=== PATIENT | male | born 1970 | race Two or more races ===

== ENCOUNTER 2018-11-23 04:26 | Inpatient (IN) | payer SELFPAY ==
[2018-11-23] VITALS (7 sets, daily range): BP systolic 129–147; BP diastolic 77–99
[~2018-11-23] VITALS: Ht 170.2 cm; Wt 40.1 kg
[2018-11-23] MEDS ORDERED: levETIRAcetam 1,000mg/NS100ml 100 ML IVPB ONE ×2 (04:30)
--- NOTE | 2018-11-23 04:30 | NUR ---
ED Nurse Note: Pt SHABANA from street, pt witnessed having multiple 3+ min tonic-clonic seizures, incontinent of urine, loc, VSS. Addendum: 11/23/18 at 0514 by KDEARING Seizure precautions in place
[2018-11-23] MEDS ORDERED: Isovue-370 150ml vial INJ PRN ×2 (05:15)
[2018-11-23 05:22] LABS: HEMATOCRIT 31.1 % (42.0-52.0); HEMOGLOBIN 9.5 G/DL (14.2-18.0); MEAN CORPUSCULAR VOLUME 87 FL (80-99); PLATELET COUNT 62 K/UL (150-450); RED BLOOD COUNT 3.57 M/UL (4.70-6.10); RED CELL DISTRIBUTION WIDTH 23.9 % (11.6-14.8); WHITE BLOOD COUNT 2.5 K/UL (4.8-10.8)
[2018-11-23 05:27] LABS: APPEARANCE,URINE CLEAR; BILIRUBIN, URINE NEGATIVE (NEGATIVE); COLOR,URINE PALE YELLOW; GLUCOSE, URINE (UA) NEGATIVE (NEGATIVE); KETONES,URINE NEGATIVE (NEGATIVE); LEUKOCYTE ESTERASE ,URINE NEGATIVE (NEGATIVE); NITRITE,URINE NEGATIVE (NEGATIVE); PH,URINE 6 (4.5-8.0); UROBILINOGEN,URINE NORMAL MG/DL (0.0-1.0)
--- NOTE | 2018-11-23 05:27 | Emergency Room Report ---
History of Present Illness General Chief Complaint: Seizure Source: EMS (Eliel Dennison MD) Present Illness HPI Approximately 52-year-old male presents with seizure prior to arrival, patient was per EMS knocking at an alcoholics anonymous door ring seizures. Had a witnessed seizure tonic-clonic, they were called to the scene, given 5 Versed terminated the seizure, patient has moved all 4 extremities without localizing signs, unknown aggravating or alleviating factors, patient is unable to answer to questions because he is currently asleep patient urinated himself. (Eliel Dennison MD) Allergies: Coded Allergies: UNABLE TO ASSESS (Unverified , 11/23/18) Patient History Limited by: medical condition - Postictal Past Medical History: see triage record Reviewed Nursing Documentation: PMH: Agreed; PSxH: Agreed (Eliel Dennison MD) Nursing Documentation-PMH Past Medical History Deferred: Patient Unconscious (Eliel Dennison MD) Review of Systems All Other Systems: limited - Patient is postictal (Eliel Dennison MD) Physical Exam Vital Signs Date Time Temp Pulse Resp B/P (MAP) Pulse Ox O2 Delivery O2 Flow Rate FiO2 11/23/18 04:24 99.3 97 20 141/96 (111) 100 Room Air Sp02 EP Interpretation: reviewed, normal General Appearance: non-toxic, lethargic Head: normocephalic, atraumatic Eyes: bilateral eye PERRL, bilateral eye EOMI ENT: uvula midline, moist mucus membranes Neck: supple, thyroid normal, supple/symm/no masses Respiratory: lungs clear, no respiratory distress, no retraction, no accessory muscle use Cardiovascular #1: normal peripheral pulses, regular rate, rhythm, no edema, no gallop, no murmur Gastrointestinal: non tender, soft, no guarding, no rebound Musculoskeletal: normal inspection Neurologic: responsive, other - Moving all 4 extremities to pain Psychiatric: mood/affect normal Skin: no rash, warm/dry (Eliel Dennison MD) Medical Decision Making Diagnostic Impression: Primary Impression: Impending delirium tremens Additional Impressions: Epileptic seizure, generalized Acute alcohol intoxication Qualified Codes: F10.929 - Alcohol use, unspecified with intoxication, unspecified Status post facial trauma with neck and chest ecchymoses Thrombocytopenia Fever Qualified Codes: R50.9 - Fever, unspecified Leukopenia Qualified Codes: D72.819 - Decreased white blood cell count, unspecified Anemia Qualified Codes: D64.9 - Anemia, unspecified ER Course 52-year-old male approximately, presents with seizure patient apparently has a history of seizures, per EMS patient was stating he is having recurrent seizures Versed was given in the field, patient is postictal and sleeping Laboratory Tests Test 11/23/18 04:50 White Blood Count 2.5 K/UL (4.8-10.8) L Red Blood Count 3.57 M/UL (4.70-6.10) L Hemoglobin 9.5 G/DL (14.2-18.0) L Hematocrit 31.1 % (42.0-52.0) L Mean Corpuscular Volume 87 FL (80-99) Mean Corpuscular Hemoglobin 26.8 PG (27.0-31.0) L Mean Corpuscular Hemoglobin Concent 30.7 G/DL (32.0-36.0) L Red Cell Distribution Width 23.9 % (11.6-14.8) H Platelet Count 62 K/UL (150-450) L Mean Platelet Volume 7.1 FL (6.5-10.1) Neutrophils (%) (Auto) % (45.0-75.0) Lymphocytes (%) (Auto) % (20.0-45.0) Monocytes (%) (Auto) % (1.0-10.0) Eosinophils (%) (Auto) % (0.0-3.0) Basophils (%) (Auto) % (0.0-2.0) Urine Color Pale yellow Urine Appearance Clear Urine pH 6 (4.5-8.0) Urine Specific [place] 1.015 (1.005-1.035) Urine Protein Negative (NEGATIVE) Urine Glucose (UA) Negative (NEGATIVE) Urine Ketones Negative (NEGATIVE) Urine Blood Negative (NEGATIVE) Urine Nitrite Negative (NEGATIVE) Urine Bilirubin Negative (NEGATIVE) Urine Urobilinogen Normal MG/DL (0.0-1.0) Urine Leukocyte Esterase Negative (NEGATIVE) Sodium Level 138 MMOL/L (136-145) Potassium Level 3.5 MMOL/L (3.5-5.1) Chloride Level 101 MMOL/L (98-107) Carbon Dioxide Level 20 MMOL/L (21-32) L Anion Gap 17 mmol/L (5-15) H Blood Urea Nitrogen 3 mg/dL (7-18) L Creatinine 0.9 MG/DL (0.55-1.30) Estimate Glomerular Filtration Rate > 60 mL/min (>60) Glucose Level 115 MG/DL (74-106) H Calcium Level 8.2 MG/DL (8.5-10.1) L Total Bilirubin 0.7 MG/DL (0.2-1.0) Aspartate Amino Transferase (AST) 70 U/L (15-37) H Alanine Aminotransferase (ALT) 37 U/L (12-78) Alkaline Phosphatase 97 U/L (46-116) Total Protein 7.8 G/DL (6.4-8.2) Albumin 3.9 G/DL (3.4-5.0) Globulin 3.9 g/dL Albumin/Globulin Ratio 1.0 (1.0-2.7) Salicylates Level 0.5 ug/mL (2.8-20) L Urine Opiates Screen Negative (NEGATIVE) Acetaminophen Level < 2 MCG/ML (10-30) L Urine Barbiturates Screen Negative (NEGATIVE) Phenytoin (Dilantin) Level < 5.0 ug/mL (10-20) L Valproic Acid Level 3 MCG/ML (50-100) L Carbamazepine (Tegretol) Level < 4.0 ug/mL (4.0-12.0) L Phencyclidine (PCP) Screen Negative (NEGATIVE) Urine Amphetamines Screen Negative (NEGATIVE) Phenobarbital Level < 15.0 ug/mL (15-40) L Urine Benzodiazepines Screen Positive (NEGATIVE) H Urine Cocaine Screen Negative (NEGATIVE) Urine Marijuana (THC) Screen Negative (NEGATIVE) Serum Alcohol 192 mg/dL (Eliel Dennison MD) ER Course Please see above note. Patient more awake but still somnolent. Will open eyes and moving all fours and able to urinate on his own. CT of the head with atrophy. PA of the neck with facial edema no evidence of fracture and osteoarthritis of neck. No vascular injuries. Continued observation. Able to state name (barely conversant). Tremulous. Low grade fever. Needs admission. Ativan given. Thiamine given. Social service consult. Admit SDU impending DTs. See above diagnosis. (Edwar Lopez MD) EKG Diagnostic Results EKG Time: 04:58 EP Interpretation: NSR, rate 84, QTc 441, no acute ST elevations, normal axis Rate: normal Rhythm: NSR ST Segments: no acute changes (Eliel Dennison MD) Rhythm Strip Diag. Results Rhythm Strip Time: 05:30 EP Interpretation: yes Rate: 88 Rhythm: NSR, no PVC's, no ectopy (Eliel Dennison MD) EP Interpretation: yes Rhythm: NSR, no PVC's, no ectopy (Edwar Lopez MD) Chest X-Ray Diagnostic Results Chest X-Ray Diagnostic Results : Chest X-Ray Ordered: Yes # of Views/Limited/Complete: 1 View Indication: Other EP Interpretation: Yes Interpretation: no consolidation, no effusion, no pneumothorax Impression: No acute disease Electronically Signed by: Electronically signed by Edwar Lopez MD (Edwar Lopez MD) CT/MRI/US Diagnostic Results CT/MRI/US Diagnostic Results #1: Imaging Test Ordered: head Impression atrophy CT/MRI/US Diagnostic Results #2: Imaging Test Ordered: CTA neck Impression IMPRESSION: Study extends from the lung bases to the level of C1 and does not include the high cervical internal carotid arteries or the V3 segments of the vertebral arteries. Mild atherosclerotic plaquing about the carotid bifurcations without flow- limiting stenosis, acute dissection, or aneurysm. Less than 10% stenosis of the proximal left cervical ICA is present. No flow-limiting stenosis or dissection in the visualized vertebral arteries. The right vertebral artery is nondominant. Relatively diffuse soft tissue edema and possible focal right lower facial edema or contusion. Correlate clinically. INCIDENTAL FINDINGS: Clustered reticulonodular groundglass opacities in the left upper lobe and lingula. Correlate for infectious/inflammatory bronchiolitis. Linear right suprahilar opacities likely reflect scarring. Cardiomegaly and atherosclerosis without thoracic aortic aneurysm. Hepatic steatosis. Mild cervical spondylosis (Edwar Lopez MD) Last Vital Signs Date Time Temp Pulse Resp B/P (MAP) Pulse Ox O2 Delivery O2 Flow Rate FiO2 11/23/18 04:30 97 20 Room Air 11/23/18 04:30 99.3 141/96 100 (Eliel Dennison MD) Last Vital Signs Date Time Temp Pulse Resp B/P (MAP) Pulse Ox O2 Delivery O2 Flow Rate FiO2 11/23/18 16:05 Room Air 11/23/18 16:00 99.8 71 142/80 (100) 11/23/18 14:50 18 98 Status: improved (Edwar Lopez MD) Disposition: ADMITTED INPATIENT Condition: Serious Referrals: NOT CHOSEN IPA/,REFERRING (PCP) Patient Instructions: Seizure, Adult Eliel Dennison MD Nov 23, 2018 05:27 Edwar Lopez MD Nov 23, 2018 08:22
[2018-11-23 05:32] LABS: CHLORIDE 101 MMOL/L (98-107)
[2018-11-23 05:43] LABS: ANION GAP 17 mmol/L (5-15); CARBON DIOXIDE 20 MMOL/L (21-32); POTASSIUM 3.5 MMOL/L (3.5-5.1); SODIUM 138 MMOL/L (136-145)
[2018-11-23 05:47] LABS: PROTEIN,URINE NEGATIVE (NEGATIVE)
[2018-11-23 05:51] LABS: BLOOD UREA NITROGEN 3 mg/dL (7-18); CALCIUM 8.2 MG/DL (8.5-10.1); CREATININE 0.9 MG/DL (0.55-1.30)
[2018-11-23 06:03] LABS: ASPARTATE AMINO TRANSFERASE 70 U/L (15-37); BILIRUBIN,TOTAL 0.7 MG/DL (0.2-1.0)
[2018-11-23 06:04] LABS: ALANINE AMINOTRANSFERASE 37 U/L (12-78); ALBUMIN 3.9 G/DL (3.4-5.0); ALKALINE PHOSPHATASE 97 U/L (46-116)
--- NOTE | 2018-11-23 06:33 | Diagnostic Imaging Report ---
Indications: Seizure Technique: Spiral acquisitions obtained through the brain. Angled axial and coronal 5 x 5 mm slices were reconstructed. Total dose length product 1393 mGycm. CTDI vol(s) 70 mGy. Dose reduction achieved using automated exposure control Comparison: None. Findings: There is some encephalomalacia in the high left right posterior parietal lobe. No acute intracranial hemorrhage or edema. No mass effect nor midline shift. There is mild prominence of the ventricles and extra axial CSF spaces. The calvarium is intact. There is minimal ethmoid sinus mucosal thickening. The mastoids are clear. The calvarium is intact Impression: Negative for acute intracranial bleed or mass effect Minimal age-related volume loss The above findings are in agreement with the [facility] preliminary report Right posterior parietal encephalomalacia, likely old infarct, not described on the preliminary report The CT scanner at [facility] is accredited by the [employer] and the scans are performed using protocols designed to limit radiation exposure to as low as reasonably achievable to attain images of sufficient resolution adequate for diagnostic evaluation.
[2018-11-23 06:52] LABS: CREATINE KINASE 298 U/L (26-308)
--- NOTE | 2018-11-23 07:01 | NUR ---
HAND-OFF: Report given to christiane Suarez RN.
--- NOTE | 2018-11-23 07:10 | NUR ---
ED Nurse Note: Received patient sleeping without acute distress in bed. no IV access noted. vss as documented. alon try to wake pt up and insert new iv if there is further iv order. pt resting at this moment.
--- NOTE | 2018-11-23 07:45 | NUR ---
ED Nurse Note: pt woke up and urinated 300 ccin urinal with assist in bed Addendum: 11/23/18 at 0745 by [email or web address] ED Nurse Note: pt woke up and urinated 300cc in urinal with assist in bed. heart rate went up to 126/min and pt had tremor in general body. pt finished urination and went back to sleep. heart rate went down to 85/min again. was not able to carry conversation. pt was unable to verbalize his name.
--- NOTE | 2018-11-23 08:07 | Diagnostic Imaging Report ---
Indication: Trauma, bruising ligature love around patient's neck, altered Technique: IV administration nonionic contrast. Arterial phase spiral acquisitions obtained through the lower neck and upper chest. Multiplanar reconstructions were generated. Total dose length product 2867 mGycm. CTDIvol(s) 16, 132, 80 mGy. Radiation dose was minimized using automated exposure control Comparison: none Findings: Exam is limited, as the cephalad extent of the exam stops well below the skull base. Unremarkable aortic arch. Normal classic branching anatomy of the great neck vessels. The right brachiocephalic, common carotid, proximal internal carotid arteries are all patent and nonstenotic. The right subclavian artery and vertebral artery are patent, without significant stenosis. Patent nonstenotic left common carotid artery and proximal internal carotid artery. Patent nonstenotic left proximal subclavian artery and proximal vertebral artery. No evidence of contrast extravasation, vascular occlusion, intimal flap, pseudoaneurysm, or other evidence of significant vascular trauma. Unremarkable hypopharynx, larynx, trachea, and esophagus. No cervical mass or adenopathy. No supraclavicular mass or adenopathy. The included mediastinum is unremarkable. Some atelectasis or scarring is seen at the right lung apex. Reticulonodular opacities are seen in the lingula and right lower lobe, with some patchy airspace consolidation in the inferior posterior lingula. The visualized portions of the liver are hypoattenuating. There is mild generalized soft tissue edema and possibly some lower facial edema on the right. The heart is borderline enlarged Impression: Limited exam, as described No evidence of significant vascular injury or extracranial cerebrovascular insufficiency Mild generalized soft tissue edema, nonspecific, could be related to prior should trauma more likely represents generalized edematous process Fatty liver incidentally noted Bilateral pulmonary parenchymal disease, possibly acute on the left. Correlate with clinical findings Borderline cardiomegaly. This agrees with the preliminary interpretation provided overnight by [facility] teleradiology service. The CT scanner at [facility] is accredited by the [employer] and the scans are performed using protocols designed to limit radiation exposure to as low as reasonably achievable to attain images of sufficient resolution adequate for diagnostic evaluation.
--- NOTE | 2018-11-23 08:30 | NUR ---
ED Nurse Note: iv inserted on Rt thumb 24G. iv fluid 300cc per hour initiated.
--- NOTE | 2018-11-23 08:59 | NUR ---
ED Nurse Note: ERMD at bedside trying to wake pt up and talk to pt. pt unable to answer the questions. pt opens eyes spontaneously but fell back to sleep right away. mumbled but not talked.
--- NOTE | 2018-11-23 10:50 | NUR ---
ED Nurse Note: pt awake and moves and HR went up to 150/min. tremor in general body noted. reported to ERMD
--- NOTE | 2018-11-23 11:13 | Diagnostic Imaging Report ---
Indication: Dyspnea Technique: One view of the chest Comparison: none Findings: Inspiration is suboptimal Patient is rotated to the right. The heart is upper limits of normal in size. The aorta is tortuous ectatic and calcified. Impression: Hypoventilatory exam. No definite acute process
[2018-11-23] MEDS ORDERED: LORazepam Inj 2mg/ml 1ml IV ONE (11:45)
[2018-11-23] MEDS ORDERED: UNOBMED (13:17)
[2018-11-23] MEDS ORDERED: Thiamine HCl 100mg/ml 2 ml Inj IM STA (13:34)
--- NOTE | 2018-11-23 14:23 | NUR ---
ED Nurse Note: report given to SHANNAN Sprague. per Darcie, room will be ready in 20 minutes. will leave at 1440.
--- NOTE | 2018-11-23 14:25 | NUR ---
NURSE NOTES: Telephone report received from Javon Suarez RN.
--- NOTE | 2018-11-23 14:50 | NUR ---
ED Nurse Note: pt left unit with 1 manager technical support and 1 RN without changes of condition.
--- NOTE | 2018-11-23 14:54 | NUR ---
NURSE NOTES: Received patient from ER via gurney to room 238-2. Patient asleep, arousable to verbal stimuli, but only mumbles. Patient on room air, saturating 94%. No acute respiratory distress noted. BP 129/83, HR 75, RR 20, Temp 99.1 axillary. Placed on vehicle monitor technician, shows sinus rhythm at this time. IV on right hand 20g intact and patent. Patient noted to have bruise on the neck. No open wounds noted, bilateral feet noted to be very dry. External catheter applied. Safety and seizure precautions in place, bed locked,alarmed, and in lowest position, padded side rails up x2, and call light left within reach. Patient placed in room close to station. Dr Avila contacted for admission orders, awaiting for call back. Will continue to monitor patient.
--- NOTE | 2018-11-23 15:00 | NUR ---
NURSE NOTES: No ID noted, unable to verify allergies and past medical history from patient.
[2018-11-23] MEDS ORDERED: Zolpidem 5mg tab ORAL PRN (15:45)
[2018-11-23] MEDS ORDERED: Miralax 17gm pkt ORAL PRN (15:45)
[2018-11-23] MEDS ORDERED: Morphine Sulfate 2mg/ml Inj(IV/IM USE ONLY) IVP PRN ×2 (15:45→23:45)
[2018-11-23] MEDS ORDERED: chlordiazePOXIDE 25mg Cap ORAL PRN (15:45)
[2018-11-23] MEDS ORDERED: LORazepam Inj 2mg/ml 1ml IV PRN ×2 (15:45→23:45)
--- NOTE | 2018-11-23 17:23 | History & Physical ---
History and Physical History & Physicial Dictated for Int Med-Dr Avila no. [id number]. Zbigniew Barakat MD Nov 23, 2018 17:23
[2018-11-23] MEDS ORDERED: Thiamine 100mg in D5W 55ml IVPB SCH (18:00)
[2018-11-23] MEDS ORDERED: Folic Acid 1 MG, Magnesium Sulfate 2,000 MG, Multivitamin - 12 Injection 10 ML in NS w/... IV SCH (18:00)
--- NOTE | 2018-11-23 18:00 | NUR ---
NURSE NOTES: Right hand 22g IV inserted, IV fluids running at prescribed rate. Noted rashes on the right hand.
--- NOTE | 2018-11-23 19:23 | NUR ---
HAND-OFF: Report given to SHANNAN Orellana. Patient in stable condition.
[2018-11-23] MEDS ORDERED: Heparin 5000 units/ml inj SUBQ SCH (21:00)
--- NOTE | 2018-11-23 22:30 | NUR ---
HAND-OFF: Report given to yassine CAMPBELL TELE. pt remains stable, even more responsive than start of shift. pt transfered with all belongings.
--- NOTE | 2018-11-23 23:00 | History and Physical Report ---
DATE OF ADMISSION: 11/23/2018 CHIEF COMPLAINT: The patient is a 52-year-old male, who presents with a chief complaint of witnessed seizure. HISTORY OF PRESENT ILLNESS: The patient is unable to contribute to the history and physical. The patient is currently somnolent however arousable. The patient presented to [place] emergency room after witnessed seizure. This is apparent withdrawal seizure from alcohol. The patient was found to have serum alcohol level of 192. The patient was admitted for seizure disorder to rule out alcohol withdrawal seizure. REVIEW OF SYSTEMS: Unable to assess secondary to the patient's mental status. PAST MEDICAL HISTORY: Unknown. PAST SURGICAL HISTORY: Unknown. CURRENT MEDICATIONS: Unknown. ALLERGIES: Unknown. SOCIAL HISTORY: Unknown. PHYSICAL EXAMINATION: VITAL SIGNS: Temperature 99.3, respirations 20, pulse 97, and blood pressure 141/96. GENERAL: The patient is a well-developed and well-nourished male, who is somnolent, but arousable. HEENT: Eyes, pupils are equal and responsive to light and accommodation. Extraocular movements are intact. NECK: Supple without lymphadenopathy. CHEST: Lungs are clear to auscultation bilaterally without wheezes or rales. CARDIOVASCULAR: Regular rhythm and rate. S1 and S2 are normal without murmurs, rubs, or gallops. ABDOMEN: Soft, nontender, and nondistended. Positive bowel sounds. No evidence of hepatosplenomegaly. Currently, no rebound or guarding noted. EXTREMITIES: Negative for clubbing, cyanosis, or edema. RECTAL/GENITAL: Not performed. NEUROLOGICAL: Unable to assess. LABORATORY STUDIES: WBC 2.5, hemoglobin 9.5, hematocrit 31.1, and platelets 62,000. Sodium 138, potassium 3.5, chloride 101, CO2 20, BUN 3, creatinine 0.9, and glucose 115. AST elevated at 70. Total creatine kinase normal at 298. Urinalysis was within normal limits. Urine toxicology was positive for benzodiazepines. Serum alcohol level was elevated at 192. ASSESSMENT: This is a 52-year-old male. 1. Seizure disorder. 2. Acute alcohol intoxication. 3. Elevated liver function tests. 4. Thrombocytopenia. TREATMENT: 1. Seizure disorder. This is probably secondary to alcohol withdrawal. The patient has been started empirically on Librium. The patient received Versed in the field. The patient has had no further seizure activity during the hospitalization. When the patient awakens, a Neurology consultation will be been obtained with Dr. Alex Meier. 2. Alcohol intoxication. The patient has been placed empirically on Librium for acute withdrawal symptoms. The patient has received intravenous Ativan in the emergency room. 3. Elevated liver function tests. This is probably secondary to chronic alcoholism. 4. Thrombocytopenia is probably secondary to alcoholic liver disease. Zbigniew Barakat M.D. DR: MARS JOB#: [id number] CC:
[2018-11-24] VITALS: BP 134/84
[2018-11-24] MEDS ORDERED: Zolpidem 5mg tab ORAL PRN
[2018-11-24] MEDS ORDERED: chlordiazePOXIDE 25mg Cap ORAL PRN (00:15)
[2018-11-24 00:23] VITALS: BP 127/82
[2018-11-24 04:00] VITALS: BP 151/89
[2018-11-24] MEDS ORDERED: Isovue-370 150ml vial INJ PRN ×2 (05:15)
[2018-11-24 06:32] LABS: HEMATOCRIT 33.8 % (42.0-52.0); HEMOGLOBIN 10.7 G/DL (14.2-18.0); MEAN CORPUSCULAR VOLUME 86 FL (80-99); PLATELET COUNT 73 K/UL (150-450); RED BLOOD COUNT 3.91 M/UL (4.70-6.10); WHITE BLOOD COUNT 4.4 K/UL (4.8-10.8)
[2018-11-24 06:53] LABS: ALANINE AMINOTRANSFERASE 29 U/L (12-78); ALBUMIN 3.8 G/DL (3.4-5.0); ALBUMIN/GLOBULIN RATIO 0.9 (1.0-2.7); ALKALINE PHOSPHATASE 72 U/L (46-116); ANION GAP 10 mmol/L (5-15); ASPARTATE AMINO TRANSFERASE 47 U/L (15-37); BILIRUBIN,TOTAL 1.5 MG/DL (0.2-1.0); BLOOD UREA NITROGEN 5 mg/dL (7-18); CALCIUM 8.9 MG/DL (8.5-10.1); CARBON DIOXIDE 26 MMOL/L (21-32); CHLORIDE 104 MMOL/L (98-107); CREATININE 0.7 MG/DL (0.55-1.30); POTASSIUM 3.5 MMOL/L (3.5-5.1); SODIUM 140 MMOL/L (136-145)
[2018-11-24 06:58] LABS: BILIRUBIN,DIRECT 0.3 MG/DL (0.0-0.3)
--- NOTE | 2018-11-24 07:10 | NUR ---
NURSE NOTES: Received patient from SHANNAN Arriaza. Patient is awake AAO x 4. Patient is eating breakfast. Patient is able to state his name. Patient on room air, saturating 94%. No acute respiratory distress noted. Patient is on cafeteria monitor. IV on right hand 20g intact and patent. Patient noted to have bruise on the neck. Safety and seizure precautions in place, bed locked,alarmed, and in lowest position, padded side rails up x2, and call light left within reach. Patient placed in room close to station. Will continue to monitor patient. Addendum: 11/24/18 at 0802 by Kyle Izquierdo RN Patient is AAO x 3.
[2018-11-24 08:00] VITALS: BP 133/86
--- NOTE | 2018-11-24 08:01 | NUR ---
CASE MANAGEMENT:REVIEW 52 YR OLD MALE BIBA FROM STREET CC: MULTIPLE SEIZURES SI: DELIRIUM TREMORS. SEIZURE. ACUTE ALCOHOL INTOXICATION 99.3 97 20 141/96 100% ON RA WBC-2.5 PLT-62 SERUM ALCOHOL+192 IS: IV KEPPRA X2 1L NS BOLUS X2 IV ATIVAN BLOOD CX CTA CHEST AND NECK CXR : TO TELEMETRY INTERQUAL CRITERIA MET
--- NOTE | 2018-11-24 10:51 | NUR ---
Social Service Note JOAQUIN and CM Coordinator met with patient to assess for homelessness. Patient is alert, oriented and verbally responsive in Nauruan. Patient states his names is Gladis Willams date of 04/29/1971. Patient states he is homelessness due to ETOH abuse. He is unable to stay with his Jennifer Willams [phone] because of his drinking. Patient [facility] receiving alcohol [facility] [phone]. JOAQUIN spoke with Alexander at this program. Alexander states patient may return to program at anytime, he will need to provide discharge instructions from hospital to return. Also the program will need to be called prior to transfer back. Patient was informed of conversation with Rizwan. Patient would like to return to program however states on the day of discharge if he is unable to return he would return to the streets. 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 Patient is non-documented and has no insurance. Resources placed in the chart and homeless checklist to be completed upon discharge. Will monitor and continue to be available as needed. A three day supply of medication to be provided upon discharge if required.
[2018-11-24 12:00] VITALS: BP 139/90
--- NOTE | 2018-11-24 12:32 | Consultation ---
History of Present Illness General Date patient seen: Nov 24, 2018 Chief Complaint: Seizure Present Illness HPI 52-year-old male presented to ER after having seizures prior to arrival. Patient had per EMS witnessed tonic-clonic seizure and got 5 mg Versed. patient was unable to answer to questions last night in ER. His ETOH blood level was 190. He is admitted to telemetry for further management. Allergies: Coded Allergies: UNABLE TO ASSESS (Unverified , 11/23/18) Medication History Miscellaneous Medications Unable to Obtain Medications (Unable To Obtain Meds), (Reported) Patient History Healthcare decision maker N Resuscitation status Full Code Advanced Directive on File Past Medical/Surgical History Past Medical/Surgical History: (1) ETOH abuse Review of Systems All Other Systems: negative except mentioned in HPI Physical Exam General Appearance: WD/WN Lines, tubes and drains: peripheral HEENT: normocephalic, atraumatic Neck: non-tender, normal alignment Respiratory/Chest: chest wall non-tender, lungs clear Breasts: no masses Cardiovascular/Chest: normal peripheral pulses Abdomen: normal bowel sounds, non tender Extremities: normal range of motion Skin Exam: normal pigmentation Last 24 Hour Vital Signs Date Time Temp Pulse Resp B/P (MAP) Pulse Ox O2 Delivery O2 Flow Rate FiO2 11/24/18 09:00 Room Air 11/24/18 08:00 99.6 78 20 133/86 (102) 96 11/24/18 07:45 89 11/24/18 04:46 99.6 11/24/18 04:00 101.6 86 22 151/89 (109) 96 11/24/18 04:00 76 11/24/18 00:23 98.6 62 19 127/82 (97) 98 11/24/18 00:00 99.6 65 20 134/84 (101) 100 11/23/18 23:00 62 11/23/18 20:00 99.6 60 129/77 (94) 11/23/18 20:00 60 11/23/18 20:00 Room Air 11/23/18 16:05 Room Air 11/23/18 16:00 99.8 71 142/80 (100) 11/23/18 15:27 78 11/23/18 15:13 79 11/23/18 14:50 97.7 98 18 128/78 98 Room Air 11/23/18 13:10 97.7 94 22 132/90 98 Room Air Intake and Output 11/23/18 11/24/18 19:00 07:00 Intake Total 1780.876 ml 499.504 ml Output Total 1100 ml Balance 680.876 ml 499.504 ml Intake IV Total 1780.876 ml 499.504 ml Output Urine Total 1100 ml # Voids 1 # Bowel Movements 2 Laboratory Tests Test 11/24/18 05:35 White Blood Count 4.4 K/UL (4.8-10.8) #L Red Blood Count 3.91 M/UL (4.70-6.10) L Hemoglobin 10.7 G/DL (14.2-18.0) L Hematocrit 33.8 % (42.0-52.0) L Mean Corpuscular Volume 86 FL (80-99) Mean Corpuscular Hemoglobin 27.3 PG (27.0-31.0) Mean Corpuscular Hemoglobin Concent 31.6 G/DL (32.0-36.0) L Red Cell Distribution Width 23.0 % (11.6-14.8) H Platelet Count 73 K/UL (150-450) L Mean Platelet Volume 7.2 FL (6.5-10.1) Neutrophils (%) (Auto) % (45.0-75.0) Lymphocytes (%) (Auto) % (20.0-45.0) Monocytes (%) (Auto) % (1.0-10.0) Eosinophils (%) (Auto) % (0.0-3.0) Basophils (%) (Auto) % (0.0-2.0) Differential Total Cells Counted 100 Neutrophils % (Manual) 76 % (45-75) H Lymphocytes % (Manual) 14 % (20-45) L Monocytes % (Manual) 9 % (1-10) Eosinophils % (Manual) 1 % (0-3) Basophils % (Manual) 0 % (0-2) Band Neutrophils 0 % (0-8) Platelet Estimate Decreased L Platelet Morphology Normal Hypochromasia 1+ Anisocytosis 2+ Sodium Level 140 MMOL/L (136-145) Potassium Level 3.5 MMOL/L (3.5-5.1) Chloride Level 104 MMOL/L (98-107) Carbon Dioxide Level 26 MMOL/L (21-32) Anion Gap 10 mmol/L (5-15) Blood Urea Nitrogen 5 mg/dL (7-18) L Creatinine 0.7 MG/DL (0.55-1.30) Estimat Glomerular Filtration Rate > 60 mL/min (>60) Glucose Level 111 MG/DL (74-106) H Calcium Level 8.9 MG/DL (8.5-10.1) Total Bilirubin 1.5 MG/DL (0.2-1.0) H Direct Bilirubin 0.3 MG/DL (0.0-0.3) Aspartate Amino Transf (AST/SGOT) 47 U/L (15-37) H Alanine Aminotransferase (ALT/SGPT) 29 U/L (12-78) Alkaline Phosphatase 72 U/L (46-116) Total Protein 7.9 G/DL (6.4-8.2) Albumin 3.8 G/DL (3.4-5.0) Globulin 4.1 g/dL Albumin/Globulin Ratio 0.9 (1.0-2.7) L Microbiology Date/Time Source Procedure Growth Status 11/23/18 14:00 Rectum Received Height (Feet): 5 Height (Inches): 7.00 Weight (Pounds): 88 Medications Current Medications Medications (Trade) Dose Ordered Sig/Tyler Route PRN Reason Start Time Stop Time Status Last Admin Dose Admin Acetaminophen (Tylenol) 650 mg Q4H PRN ORAL fever 11/23/18 23:45 12/23/18 15:44 11/24/18 04:16 Chlordiazepoxide (Librium) 25 mg Q6H PRN ORAL Agitation 11/24/18 00:15 11/30/18 00:14 11/24/18 00:26 Dextrose (Dextrose 50%) 25 ml Q30M PRN IV Hypoglycemia 11/23/18 23:15 12/23/18 15:44 Dextrose (Dextrose 50%) 50 ml Q30M PRN IV Hypoglycemia 11/23/18 23:15 12/23/18 15:44 Folic Acid 1 mg/ Magnesium Sulfate 2000 mg/ Multivitamins 10 ml/Potassium Chloride/Sodium Chloride 1,014.2 ml @ 124.876 mls/hr Q24H IV 11/24/18 18:00 12/23/18 17:59 Iopamidol (Isovue-370 150ml) 150 ml NOW PRN INJ Radiology Procedure 11/24/18 05:15 11/25/18 05:08 Iopamidol (Isovue-370 150ml) 150 ml NOW PRN INJ Radiology Procedure 11/24/18 05:15 11/25/18 05:08 Lorazepam (Ativan 2mg/ml 1ml) 2 mg Q1H PRN IV seizures 11/23/18 23:45 11/30/18 15:44 Morphine Sulfate (Morphine Sulfate) 1 mg Q4H PRN IVP For Pain 11/23/18 23:45 11/30/18 15:44 Ondansetron HCl (Zofran) 4 mg Q6H PRN IVP Nausea & Vomiting 11/24/18 00:15 12/23/18 00:14 Polyethylene Glycol (Miralax) 17 gm HSPRN PRN ORAL Constipation 11/24/18 15:45 12/23/18 15:44 Thiamine HCl 100 mg/Dextrose 56 ml @ 112 mls/hr Q24H IVPB 11/24/18 18:00 12/23/18 17:59 Zolpidem Tartrate (Ambien) 5 mg HSPRN PRN ORAL Insomnia 11/24/18 00:00 11/30/18 00:00 Assessment/Plan Problem List: (1) Acute alcohol intoxication ICD Codes: F10.929 - Alcohol use, unspecified with intoxication, unspecified SNOMED: 59999373, 0641390 Qualifiers: Qualified Codes: F10.929 - Alcohol use, unspecified with intoxication, unspecified (2) Tonic clonic seizures ICD Codes: G40.409 - Other generalized epilepsy and epileptic syndromes, not intractable, without status epilepticus SNOMED: 651743145 (3) Anemia ICD Codes: D64.9 - Anemia, unspecified SNOMED: 214518926 Qualifiers: Qualified Codes: D64.9 - Anemia, unspecified (4) ETOH abuse ICD Codes: F10.10 - Alcohol abuse, uncomplicated SNOMED: 01048159 Assessment/Plan: banana bag librium check electrolytes dc planning Dusty Adams MD Nov 24, 2018 12:32
--- NOTE | 2018-11-24 13:56 | NUR ---
NURSE NOTES: Called Alexander at [facility] . Spoke about patient being discharge to the Rehab with discharge papers. Mervat states he will notify management.
[2018-11-24] MEDS ORDERED: Miralax 17gm pkt ORAL PRN (15:45)
--- NOTE | 2018-11-24 16:38 | Cardiology Report ---
APPROVED REPORT EKG Measurement Heart [id number] Normal sinus rhythm Nonspecific T wave abnormality Abnormal ECG
--- NOTE | 2018-11-24 17:00 | NUR ---
Homeless Discharge: Patient is being discharged from medical care. Awake, alert and oriented x4. patient speaks lithuanian. Had manager business continuity assist with discharge instructions to rehab. No new prescriptions. belonging checklist signed. discharge instruction signed. Patient verbalized understanding of After care instructions. All medical devices such as IV, athletic monitor, and ID band were removed. Patient left via wheelchair with all personal belongings to taxi. Addendum: 11/24/18 at 1728 by Kyle Izquierdo RN Homeless discharge packet completed.
[2018-11-24] MEDS ORDERED: Tubing IV Secondary IV ONE (17:13)
[2018-11-24] MEDS ORDERED: Thiamine HCl 100 MG in D5W 55 ML IVPB SCH (18:00)
[2018-11-24] MEDS ORDERED: Folic Acid 1 MG, Magnesium Sulfate 2,000 MG, Multivitamin - 12 Injection 10 ML in NS w/... IV SCH (18:00)
--- NOTE | 2018-11-24 20:15 | Discharge Summary ---
DATE OF ADMISSION: 11/23/2018 DATE OF DISCHARGE: 11/24/2018 HISTORY AND HOSPITAL COURSE: This is a 48 years old gentleman with past medical history significant for alcohol abuse, who was presented to the hospital after had a witnessed seizure. Shortly after initial evaluation, the patient was admitted to the hospital with seizure disorder as well as acute alcohol intoxication with elevated liver function and thrombocytopenia. Throughout the hospital course, the patient was consulted with Dr. Adams, Pulmonary, Critical Care, status improved and subsequently was discharged home today to be followed by as outpatient with his primary physician. FINAL DIAGNOSES: 1. Alcoholism. 2. Seizure disorder. 3. Anemia. MEDICATIONS ON DISCHARGE: Continue discharge medication list. ACTIVITY: As tolerated. DIET: Would be regular diet. Advised the patient to avoid drinking alcohol and follow up with Alcohol Anonymous team in order to get help for quit alcohol abuse. Luis Avila M.D. DR: WALTER JOB#: [id number] CC:
== END 2018-11-24 17:14 | disposition home or self-care (01) | DRG 897 ==
LOC: EDBD 04:26 → EMR 04:47 → 2W 12:40 → EDBD 12:40 → EDBEDREQ 13:50 → 2W 14:46 → 2E 23:00
DX: F10.288 Alcohol dependence with other alcohol-induced disorder (principal); G40.89 Other seizures; F10.239 Alcohol dependence with withdrawal, unspecified; D64.9 Anemia, unspecified; Z59.0 Homelessness; D69.59 Other secondary thrombocytopenia
CPT/HCPCS: 36415; 70450; 70498; 71045; 71275; 80053; 80156; 80164; 80184; 80185; 80307; 80329; 81003; 82248; 82550; 82962; 85007; 85025; 87040; 87081; 93005; 96361; 96372; 96374; 96375; 99285

== ENCOUNTER 2019-02-25 16:32 | Emergency (ER) | payer MEDICAID ==
[~2019-02-25] VITALS: Ht 170.2 cm; Wt 77.1 kg
[~2019-02-25 16:32] MED LIST: UNOBMED
[2019-02-25 16:42] VITALS: BP 136/86
--- NOTE | 2019-02-25 16:42 | NUR ---
ED Nurse Note: Patient came into ER via ambulance from home with ETOH abuse. Patient is crying and AAOx4, on room air, vital signs stable. Placed patient on monitor. No s/s of respiratory distress and cardiac distress.
[2019-02-25] MEDS ORDERED: LORazepam Inj 2mg/ml 1ml IV ONE (16:45)
[2019-02-25 17:50] LABS: ANION GAP 8 mmol/L (5-15); BLOOD UREA NITROGEN 6 mg/dL (7-18); CALCIUM 7.7 MG/DL (8.5-10.1); CARBON DIOXIDE 28 MMOL/L (21-32); CHLORIDE 110 MMOL/L (98-107); CREATININE 0.4 MG/DL (0.55-1.30); POTASSIUM 5.1 MMOL/L (3.5-5.1); SODIUM 146 MMOL/L (136-145)
[2019-02-25 17:55] LABS: ALANINE AMINOTRANSFERASE 33 U/L (12-78); ALBUMIN 3.5 G/DL (3.4-5.0); ALBUMIN/GLOBULIN RATIO 0.9 (1.0-2.7); ALKALINE PHOSPHATASE 86 U/L (46-116); ASPARTATE AMINO TRANSFERASE 63 U/L (15-37); BILIRUBIN,TOTAL 0.5 MG/DL (0.2-1.0)
[2019-02-25 18:02] LABS: BASOPHILS % (AUTO) 1.1 % (0.0-2.0); HEMATOCRIT 36.5 % (42.0-52.0); HEMOGLOBIN 11.5 G/DL (14.2-18.0); LYMPHOCYTES % (AUTO) 52.2 % (20.0-45.0); MEAN CORPUSCULAR VOLUME 82 FL (80-99); MONOCYTES % (AUTO) 4.6 % (1.0-10.0); NEUTROPHILS % (AUTO) 38.1 % (45.0-75.0); PLATELET COUNT 102 K/UL (150-450); RED BLOOD COUNT 4.45 M/UL (4.70-6.10); RED CELL DISTRIBUTION WIDTH 17.9 % (11.6-14.8); WHITE BLOOD COUNT 3.8 K/UL (4.8-10.8)
[2019-02-25 18:26] LABS: APPEARANCE,URINE CLEAR; BILIRUBIN, URINE NEGATIVE (NEGATIVE); COLOR,URINE PALE YELLOW; GLUCOSE, URINE (UA) NEGATIVE (NEGATIVE); KETONES,URINE NEGATIVE (NEGATIVE); LEUKOCYTE ESTERASE ,URINE NEGATIVE (NEGATIVE); NITRITE,URINE NEGATIVE (NEGATIVE); PH,URINE 6.5 (4.5-8.0); PROTEIN,URINE NEGATIVE (NEGATIVE); UROBILINOGEN,URINE NORMAL MG/DL (0.0-1.0)
--- NOTE | 2019-02-25 18:46 | NUR ---
ED Nurse Note: Patient comfortable and laying in bed sleep. No signs of respiratory distress or cardiac distress noted.
[2019-02-25 18:48] VITALS: BP 124/83
--- NOTE | 2019-02-25 19:07 | NUR ---
HAND-OFF: Report given to Boyd SHOEMAKER. endorsed all plan of care to Boyd Shoemaker
[2019-02-25 19:08] VITALS: BP 121/81
--- NOTE | 2019-02-25 19:08 | NUR ---
ED Nurse Note: Received report from Ashley CAMPBELL.
--- NOTE | 2019-02-25 20:27 | Emergency Room Report ---
History of Present Illness General Chief Complaint: Alcohol Intoxication Source: Patient (Ileana Ryan) Present Illness HPI 48-year-old male with history of alcohol abuse brought in by paramedics due to alcohol intoxication. According to the paramedics patient was on his way to AA meeting as he started drinking. Patient enters the ER screaming and being agitated and wanting to leave the gurney. Patient is not a good historian and does not sound to having any pain or discomfort. Vital signs are within normal limits at this time. Patient was recently hospitalized at [facility] for delirium tremens. No signs of trauma noted. (Ileana Ryan) Allergies: Coded Allergies: No Known Allergies (Unverified , 02/25/19) UNABLE TO ASSESS (Unverified , 11/23/18) Patient History Past Medical History: see triage record Past Surgical History: unable to obtain Pertinent Family History: unable to obtain Social History: Reports: alcohol use Reviewed Nursing Documentation: PMH: Agreed; PSxH: Agreed (Ileana Ryan) Nursing Documentation-PMH Past Medical History: No History, Except For (Ileana Ryan) Review of Systems All Other Systems: negative except mentioned in HPI (Ileana Ryan) Physical Exam Vital Signs Date Time Temp Pulse Resp B/P (MAP) Pulse Ox O2 Delivery O2 Flow Rate FiO2 02/25/19 16:24 70 16 138/80 (99) 98 Room Air 02/25/19 16:42 97.8 Sp02 EP Interpretation: reviewed, normal General Appearance: moderate distress, other - intoxicated Head: normocephalic, atraumatic Eyes: bilateral eye normal inspection, bilateral eye PERRL ENT: hearing grossly normal, normal pharynx, no angioedema, normal voice Neck: full range of motion, supple/symm/no masses Respiratory: chest non-tender, lungs clear, normal breath sounds, no rhonchi, no wheezing, speaking full sentences Cardiovascular #1: regular rate, rhythm, no edema, no JVD, no murmur, normal capillary refill Cardiovascular #2: 2+ carotid (R), 2+ carotid (L), 2+ radial (R), 2+ radial (L) Gastrointestinal: non tender, no mass, no organomegaly Genitourinary: no CVA tenderness Musculoskeletal: back normal, normal range of motion Neurologic: motor strength/tone normal, sensory intact, responsive Psychiatric: other - intoxicated Skin: no rash Lymphatic: no adenopathy (Ileana Ryan) Medical Decision Making PA Attestation All my diagnosis and treatment plans were reviewed ad discussed with my supervising physician Dr. Chi (Ileana Ryan) Diagnostic Impression: Primary Impression: Acute alcoholic intoxication Qualified Codes: F10.920 - Alcohol use, unspecified with intoxication, uncomplicated ER Course 48-year-old male with history of alcohol abuse brought in by paramedics due to alcohol intoxication. According to the paramedics patient was on his way to meeting as he started drinking. Patient enters the ER screaming and being agitated and wanting to leave the gurney. Patient is not a good historian and does not sound to having any pain or discomfort. Vital signs are within normal limits at this time. Patient was recently hospitalized at [facility] for delirium tremens. No signs of trauma noted. Ddx considered but are not limited to: generalized anxiety disorder, panic attack, depression with psychotic feature, bipolar disorder, drug overdose, alcohol intoxication Vital signs: are WNL, pt. is afebrile H&PE are most consistent with: Ddx considered but are not limited to: Alcohol intoxication with altered level of consciousness, alcohol intoxication causing pancreatitis, alcohol abuse, multi drug use and alcohol intoxication Vital signs: are WNL, pt. is afebrile H&PE are most consistent with: alcohol intoxication ORDERS: CBC, CMP, UA, tox screen, lipase, EKG, ETOH, CXR, troponin ER intervention: NS bolus, ativan I signed off the patient to Dr. Mazariegos at 09:00 PM (Ileana Ryan) ER Course Patient signed out to me. He presents with altered mental status secondary to alcohol intoxication. He slept through the night. No issues. Will discharge home with prescription for Librium. (Yovany Mazariegos MD) EKG Diagnostic Results Rate: normal Rhythm: NSR ST Segments: no acute changes Other Impression No acute ST changes (Ileana Ryan) Chest X-Ray Diagnostic Results Chest X-Ray Diagnostic Results : Chest X-Ray Ordered: Yes # of Views/Limited/Complete: 1 View Indication: Other EP Interpretation: Yes PA Xray: Interpretation reviewed, by supervising MD, and agrees with findings. Interpretation: no consolidation, no effusion, no pneumothorax, other - no nodule, no aspiration Impression: No acute disease Electronically Signed by: Ileana Jamil PA-C (Ileana Ryan) Last Vital Signs Date Time Temp Pulse Resp B/P (MAP) Pulse Ox O2 Delivery O2 Flow Rate FiO2 02/25/19 19:08 98.2 58 15 121/81 100 Room Air (Ileana Ryan) Status: improved (Yovany Mazariegos MD) Disposition: HOME, SELF-CARE Condition: Stable Scripts Chlordiazepoxide (Chlordiazepoxide HCl) 25 Mg Capsule 25 MG ORAL THREE TIMES A DAY, #15 CAP 0 Refills Prov: Yovany Mazariegos MD 02/26/19 Referrals: NOT CHOSEN IPA/,REFERRING (PCP) Patient Instructions: Alcohol Intoxication, [id number] Additional Instructions: Abstain from alcohol. Go to rehab. Follow-up with your doctor in 7 days. Return if worse. Ileana Ryan Feb 25, 2019 20:27 Yovany Mazariegos MD Feb 26, 2019 01:53
[2019-02-25 21:46] VITALS: BP 103/72
--- NOTE | 2019-02-25 21:46 | NUR ---
ED Nurse Note: Pt seen sleeping in bed. No SOB. Breathing even and unlabored. No new order at this time. Will cont to monitor.
[2019-02-25 23:51] VITALS: BP 108/65
[2019-02-26 01:15] VITALS: BP 107/67
[2019-02-26] MEDS ORDERED: LIBRIUM25 MG ORAL (01:53)
[2019-02-26 03:48] VITALS: BP 121/81
[2019-02-26 05:17] VITALS: BP 109/68
[2019-02-26 06:02] VITALS: BP 110/77
--- NOTE | 2019-02-26 06:02 | NUR ---
ED Nurse Note: Pt cleared by ERMD for discharge. DC instructions/prescription was given and explained to pt and verbalized understanding of teachings. All medical deviecs such as ID band and IV line removed. Pt is AAO x4, ambulatory and left with all personal belongings.
--- NOTE | 2019-02-26 12:40 | Diagnostic Imaging Report ---
Indication: Dyspnea Comparison: None A single view chest radiograph was obtained. Findings: Cardiomediastinal appearance is within normal limits for age. The lungs are clear. Pulmonary vascularity is appropriate. The diaphragmatic contour is smooth and costophrenic angles are sharp. No pleural effusions are identified. There is an old left clavicle fracture. The bones are otherwise unremarkable. Impression: No acute findings
--- NOTE | 2019-02-26 19:14 | Cardiology Report ---
APPROVED REPORT EKG Measurement Heart [id number] [place] 158P42 [id number] Normal sinus rhythm Normal ECG
== END 2019-02-26 06:02 | disposition home or self-care (01) ==
LOC: EDBD 16:32 → EMR 16:45
DX: F10.129 Alcohol abuse with intoxication, unspecified (principal)
CPT/HCPCS: 36415; 71045; 80053; 80307; 81003; 83690; 84484; 85025; 93005; 96361; 96374; G0480; J7030; Z7502; 99284